=== PATIENT | female | born 1960 | race Caucasian/White ===

== ENCOUNTER → 2021-07-09 | Outpatient (CLI) | payer OTHER ==
--- NOTE | 2021-07-09 17:10 | KCIC ---
RS Compliance Statement: One or more of the following individualized dose reduction techniques were utilized for this examinat ion: 1. Automated exposure control 2. Adjustment of the mA and/or kV according to patient size 3. Use of iterative reconstruction technique Coronary calcium score CT chest without contrast History: Family history of CAD, hypertension. Elevated cholesterol. Technique: With retrospective electrocardiogram gating axial reconstructed noncontrast images of the chest at the level of the coronary arteries was performed. Images were post processed on workstation and calcium score calculated using the modified Agatston Janowitz protocol. Findings: Total coronary calcium score is 0. This is a no identifiable plaque burden and low cardiova scular disease risk. This is based on the calcium score of 0 of the left main coronary artery, score of 0 of the left anterior descending artery, score of 0 of the left circumflex artery and score of 0 of the right coronary artery. Noncoronary findings demonstrate normal caliber great vessels. Cardiac size normal, no pericardial ef fusion. There is a 1.5 cm hypodensity in the central liver. There is a second tiny hypodensity on dread ge 43. These findings are incompletely characterized. Common etiologies would be a cyst or hemangioma . Central airways are patent. There is a large left lower lobe calcified granuloma. No lung consolida tion. No pleural abnormality. IMPRESSION: Patient's total calcium score is 0. Electronically signed by: Nate Wood MD (07/09/2021 5:07 PM) [id number]
== END ==
LOC: KCIC CT 13:55
PROVIDERS: ATTEND Family Medicine
DX: Z13.6 Encounter for screening for cardiovascular disorders (principal); J84.10 Pulmonary fibrosis, unspecified; Z82.49 Family history of ischemic heart disease and other diseases of the circulatory system
CPT/HCPCS: 75571